=== PATIENT | male | born 1985 | race Caucasian/White ===

== ENCOUNTER 2018-06-09 08:58 | Emergency (ER) | payer BC, SELFPAY ==
[2018-06-09] VITALS (43 sets, daily range): BP systolic 106–128; BP diastolic 54–90; PULSE 65–100; RESP 12–22; TEMP 37.2–37.4; O2SAT 94–100
--- NOTE | 2018-06-09 09:13 | W.ED.GENAD ---
Discharge Plan Disposition Patient Disposition: HOME Condition: Improving Discharge Details Chief Complaint: Allergic Clinical Impression: Urticaria of entire body, Exercise involving running Primary Care Provider: None,None ED Provider: Kia Marcelo Home Meds and New Rx's Prescriptions: New prednisone 20 mg tablet See Rx Instructions .ROUTE .COMPLEX Qty: 12 RF: 0 Discharge Instructions Instructions: Urticaria (ED) Additional Instructions: Drink plenty of fluids and get plenty of rest. Take Benadryl as needed and directed for rash or itching. Take the steroids until finished. Call your special education professional on Monday to schedule a follow-up appointment for reevaluation. Refrain from any vigorous exercise prior to evaluation by your special education professional. Return immediately to the emergency department with any worsening or new concerning symptoms. 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 Patient given 0.3 mg epinephrine IM, solumedrol 125mg IV, benadryl 50mg IV and bolus ivf and states he feels better. Patient has minimal scattered wheezing but states he had a recent cold. He denies any complaint of shortness of breath and oxygen saturation 98% on room air. He has diffuse urticaria but he states this is improved since onset. Oropharynx normal to inspection. Discussed with patient that as he was given epinephrine, we will keep in the emergency department at least for 4 to 6 hours for observation. 1020 -- Pt states he feels much better. Rash appears near resolved. Vitals within normal limits. Patient given food and drink. 1230 -- Pt feels much better. No acute complaints. Pt is requesting to go home. Will send home with a prescription for prednisone. Patient instructed to avoid vigorous activity or exercise until follow-up with his primary care doctor and special education professional. He is instructed to take Benadryl as needed directed for rash or itching. He is instructed to return here at any time if worse. HPI General Mode of arrival: ambulatory. Date/Time Provider Initiated Documentation: 06/09/18 09:12. Limitations to Documentation: no limitations. Information obtained by: patient. HPI Narrative: Patient is a 33-year-old male with history of idiopathic anaphylaxis and hives after vigorous exercise who presents with diffuse hives after running a 5K race this morning. Patient states that he finished a 5K race and felt hot and sweaty and went to the bathroom and looked in the mirror and he had diffuse hives from head to toe. States he went to the medic station at the race and was evaluated and given 0.3 mg epinephrine, 125 mg Solu-Medrol IV, and 50 mg of Benadryl IV. Patient states he is feeling better at this time. He denies any throat swelling or itching, difficulty breathing, nausea or vomiting. Patient states he has a history of a similar episode 8 months ago after vigorous exercise but states the hives were worse at that time. He states he was seen at [facility] and given a large dose of epinephrine in addition to steroids and Benadryl and was observed in the ER for several hours and discharged. Patient states after this he saw an special education professional and was diagnosed with idiopathic anaphylaxis. He was told by the special education professional that he likely did not have exercise-induced anaphylaxis as he is also had an episode of hives while laying in bed. He states his special education professional tested him for shellfish and he was strongly positive for allergic reaction. Patient states he ate a paris egg and cheese sandwich this morning but denies any other known ingestions that may have contributed to his symptoms. He denies any other new medications. Related Data Home Medications Medication Instructions Recorded Confirmed prednisone See Rx Instructions .ROUTE 06/09/18 .COMPLEX #12 tab Previous Rx's Medication Instructions Recorded prednisone See Rx Instructions .ROUTE 06/09/18 .COMPLEX #12 tab Allergies Allergy/AdvReac Type Severity Reaction Status Date / Time shellfish derived Allergy Severe hives/swell Unverified 06/09/18 09:04 ing General Stated Complaint: Allergic EMI: 2 Review of Systems Review of Systems All systems reviewed & are unremarkable except as noted in HPI and below Constitutional Reports as per HPI, Denies chills and Denies fever(s) Eyes Denies blurry vision ENT Denies dizziness, Denies sore throat and Denies throat swelling Cardiovascular Denies chest pain and Denies dyspnea Respiratory Denies cough and Denies dyspnea Gastrointestinal Denies abdominal pain, Denies diarrhea and Denies vomiting Genitourinary Denies hematuria and Denies dysuria Musculoskeletal Denies back pain and Denies numbness Integumentary/Breasts Denies lesions and Reports rash Neurologic Denies dizziness, Denies focal weakness and Denies numbness Allergic/Immunologic Denies throat swelling [facility] Medical History ACL (anterior cruciate ligament) tear (Acute) Femur fracture (Acute) Surgical History Femur fracture (Acute) History of knee surgery (Acute) Social History Smoking/Tobacco Use Status: Never Tobacco: How many years used: 10 Alcohol Intake: current Alcohol Intake frequency: 0-2 drinks per day Alcohol type: beer Drug use: Daily Substance use type: marijuana Do you feel safe at home: Yes Do you feel safe in your relationship?: Yes Exam Const General: cooperative and healthy appearing Orientation: alert and awake HENMT Head: normal to inspection Ears: hearing grossly normal bilaterally, external ears normal and TM's normal bilaterally General nose exam: external nose normal Face and sinus: normal facial exam Mouth: oral mucosae normal Teeth and gingiva: dentition normal Throat: posterior oropharynx normal Eyes General: appearance normal, both eyes and all related structures Eyelids: eyelids normal Pupils: PERRL EOM: EOM intact bilaterally Neck Neck: normal visual inspection Lymphatic: no lymphadenopathy noted Chest Chest: normal inspection of the chest Resp Effort & Inspection: normal respiratory effort and able to speak in complete sentences Auscultation: no crackles, no rales, no rhonchi and wheezes scattered wheezes Cardio Rate: regular rate Rhythm: regular rhythm GI Inspection: normal to inspection Palpation: soft, not firm, no guarding, no hepatosplenomegaly, no masses and nontender Auscultation: normal bowel sounds Skin Rashes: rashes noted (Diffuse erythematous urticaria) Neuro General: alert and awake Cognition: normal cognition Speech: speech normal Gait: normal gait Motor: muscle tone normal throughout Sensory Exam: no sensory deficits noted Extrem General: normal to inspection, full ROM and no edema Psych Appearance: grossly normal Mental Status: mental status grossly normal Speech and Movement: speech and movement normal Affect: normal affect Thought Process: normal Course Vital Signs Temperature 99.0 F 06/09/18 08:59 Pulse 91 H 06/09/18 08:59 Respiratory Rate 16 06/09/18 08:59 Blood Pressure 128/56 L 06/09/18 08:59 Pulse Oximetry 98 06/09/18 08:59 Temperature 99.0 F 06/09/18 08:59 Temperature Source Skin 06/09/18 08:59 Pulse 91 H 06/09/18 08:59 Respiratory Rate 16 06/09/18 08:59 Blood Pressure 128/56 L 06/09/18 08:59 Pulse Oximetry 98 06/09/18 08:59 Oxygen Delivery Method Room Air 06/09/18 08:59 Oxygen Flow Rate 0 06/09/18 08:59
[2018-06-09] MEDS: Normal Saline 1,000 ML 1000 ML IV (10:24)
--- NOTE | 2018-06-09 10:24 | NUR.NOTE ---
pt provided crackers and water Nursing Note:
== END 2018-06-09 12:36 | disposition home or self-care (01) ==
PROVIDERS: Emergency Provider Physician Assistant
DX: L50.9 Urticaria, unspecified (principal); R06.2 Wheezing
CPT/HCPCS: 96361; 96372; 96374; 96375; 99283